=== PATIENT | female | born 1955 | race Caucasian/White ===

== ENCOUNTER 2017-09-29 13:27 | Emergency (ER) | payer OTHER ==
[~2017-09-29] VITALS: Ht 154.9 cm; Wt 82.0 kg
[~2017-09-29 13:27] MED LIST: BUSP-8 PO; GLC/500 PO; GLIM2TAB2 PO; HYDR25TA4 PO; IMIP50TA PO; LISI-794 PO; LPT40 PO; MULT-506 PO; OMEG12006 PO; POTA20TA13 PO; PRLSR20 PO
[2017-09-29 13:33] VITALS: TEMP 37.2; Ht 154.9 cm; Wt 82.0 kg
--- NOTE | 2017-09-29 14:14 | EMERGENCY ROOM VISIT NOTE ---
History Report prepared by Destin: Louis Ho Under the Supervision of: Dr. Jun Alejandra M.D. First contact with patient: 13:50 Chief Complaint: VOMITING Stated Complaint: WEAKNESS,VOMITING, PASSING OUT History of Present Illness The patient is a 62 year old white female with a past medical history of anxiety , depression, hypertension, and diabetes who presents to the ED with a cc of intermittent episodes of vomiting beginning last night. Positive loss of consciousness, headache, productive cough, nausea, diarrhea, and generalized weakness. Negative fevers, chest pain, shortness of breath, abdominal pain, or abnormal urinary symptoms. Last night, the patient started to feel unwell and began to experience a headache, cough, nausea, and associated vomiting. Today, she began to feel generally weak and had episodes of diarrhea. While vomiting today, she experienced a syncopal episode that only lasted a couple of seconds. She did not hit her head or exhibit seizure-like activity. She does not smoking tobacco products. She denies any recent sick contacts, travel, or recent antibiotic use. She did not receive a influenza immunization. She denies any kidney stone history. Source of History: patient Onset: last night Position: other (GI) Symptom Intensity: Multiple Episodes Quality: other (Vomiting) Timing: intermittent Associated Symptoms: + LOC, + headache, + cough, + nausea, + diarrhea, + weakness, No fevers, No chest pain, No SOB, No abdominal pain, No urinary symptoms Review of Systems See HPI for pertinent positives and negatives. A total of ten systems were reviewed and were otherwise negative. Past Medical & Surgical Medical Problems: (1) Anxiety (2) Benign hypertension Family History Omitted secondary to the patient's age. Social History Smoking Status: Never Smoker Marital Status: Occupation Status: employed Current/Historical Medications Scheduled Atorvastatin (Lipitor), 40 MG PO DAILY Buspirone Hcl (Buspirone Hcl), 10 MG PO DAILY Cephalexin (Keflex), 1 CAP PO BID Glimepiride (Glimepiride), 2 MG PO DAILY Hydrochlorothiazide (Hctz), 12.5 MG PO DAILY Imipramine Hcl (Tofranil), 100 MG PO HS Lisinopril (Zestril), 40 MG PO DAILY Metformin Hcl (Glucophage), 500 MG PO QAM Multivitamin (Multivitamin), 1 TAB PO DAILY [place]-3 Fatty Acids ([place] 3), 1,000 MG PO DAILY Omeprazole (Prilosec), 20 MG PO DAILY Oseltamivir (Tamiflu), 75 MG PO BID Potassium Chloride Microencaps (Potassium Chloride Er), 20 MEQ PO DAILY Scheduled PRN Ondansetron Hcl (Zofran), 4 MG PO Q8H PRN for Nausea Allergies Coded Allergies: Codeine (Unverified Allergy, Mild, 09/29/17) Permethrin (Verified Allergy, Unknown, Became disoriented., 09/29/17) Listed in [facility] record, reported by PT. Physical Exam Vital Signs Date Time Temp Pulse Resp B/P (MAP) Pulse Ox O2 Delivery O2 Flow Rate FiO2 09/29/17 17:20 100 18 116/68 94 Room Air 09/29/17 15:05 113 18 160/93 92 Room Air 09/29/17 14:32 118 09/29/17 13:33 37.2 118 20 137/81 94 Room Air Physical Exam GENERAL: Awake, alert, well-appearing, NAD, face mask in place. HENT: Normocephalic, atraumatic. EYES: Normal conjunctiva. Sclera non-icteric. NECK: Supple. No nuchal rigidity. FROM. RESPIRATORY: CTAB, no rhonchi, wheezing, crackles CARDIAC: Tachycardic rate with a regular rhythm. No MRG ABDOMEN: Soft, NTND, BS+, nonsurgical MSK: No chest wall TTP, no LE edema. No CVA TTP. NEURO: GCS 15, CN 2-12 intact, moves all 4s on command SKIN: No rash or jaundice noted. Medical Decision & Procedures ER Provider Diagnostic Interpretation: Radiology results as stated below per my review and radiologist interpretation: HEAD WITHOUT CONTRAST (CT) CLINICAL HISTORY: 62 years-old Female presenting with syncope, BRAMBILA, weakness. TECHNIQUE: Multidetector CT imaging of the head was performed without the use of intravenous contrast. IV contrast: None. A dose lowering technique was used consistent with the principles of ALARA (as low as reasonably achievable). COMPARISON: None. CT DOSE (mGy.cm): The estimated cumulative dose is 679.75 mGycm. 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 Ventricles and sulci normal in size. Periventricular and subcortical white matter hypoattenuation, nonspecific but likely indicative of chronic small vessel ischemic change. Old lacunar infarcts in the subinsular region bilaterally. No mass effect or midline shift. No hemorrhage or acute territorial infarct. No extra-axial fluid collection. Paranasal sinuses and mastoid air cells clear. Calvarium intact. IMPRESSION: 1. Chronic small vessel ischemic change. No acute intracranial abnormality. Electronically signed by: Oswaldo Argueta M.D. 09/29/2017 3:32 PM Dictated Date/Time: 09/29/2017 3:30 PM CHEST ONE VIEW PORTABLE CLINICAL HISTORY: Abdominal pain. COMPARISON STUDY: Chest radiograph and abdominal series November 13, 2014. FINDINGS: No lucency is identified under the hemidiaphragms to suggest pneumoperitoneum. Lung volumes are at the lower limits of normal. No pneumothorax or pleural effusion is noted. There is no evidence for pulmonary edema. Cardiomediastinal silhouette is unremarkable. IMPRESSION: No acute cardiopulmonary findings. Electronically signed by: Sacha Henriquez M.D. 09/29/2017 2:49 PM Dictated Date/Time: 09/29/2017 2:49 PM Laboratory Results 09/29/17 14:33 Red Blood Count 4.41, Mean Corpuscular Volume 87.3, Mean Corpuscular Hemoglobin 29.7, Mean Corpuscular Hemoglobin Concent 34.0, Mean Platelet Volume 11.6, Neutrophils (%) (Auto) 78.6, Lymphocytes (%) (Auto) 8.2, Monocytes (%) (Auto) 12.4, Eosinophils (%) (Auto) 0.0, Basophils (%) (Auto) 0.3, Neutrophils # (Auto ) 6.24, Lymphocytes # (Auto) 0.65, Monocytes # (Auto) 0.98, Eosinophils # (Auto ) 0.00, Basophils # (Auto) 0.02 09/29/17 14:33 Test 09/29/17 14:33 09/29/17 14:55 09/29/17 16:35 White Blood Count 7.93 K/uL (4.8-10.8) Red Blood Count 4.41 M/uL (4.2-5.4) Hemoglobin 13.1 g/dL (12.0-16.0) Hematocrit 38.5 % (37-47) Mean Corpuscular Volume 87.3 fL (80-100) Mean Corpuscular Hemoglobin 29.7 pg (25-34) Mean Corpuscular Hemoglobin Concent 34.0 g/dl (32-36) Platelet Count 173 K/uL (130-400) Mean Platelet Volume 11.6 fL (7.4-10.4) Neutrophils (%) (Auto) 78.6 % Lymphocytes (%) (Auto) 8.2 % Monocytes (%) (Auto) 12.4 % Eosinophils (%) (Auto) 0.0 % Basophils (%) (Auto) 0.3 % Neutrophils # (Auto) 6.24 K/uL (1.4-6.5) Lymphocytes # (Auto) 0.65 K/uL (1.2-3.4) Monocytes # (Auto) 0.98 K/uL (0.11-0.59) Eosinophils # (Auto) 0.00 K/uL (0-0.5) Basophils # (Auto) 0.02 K/uL (0-0.2) RDW Standard Deviation 42.5 fL (36.4-46.3) RDW Coefficient of Variation 13.2 % (11.5-14.5) Immature Granulocyte % (Auto) 0.5 % Immature Granulocyte # (Auto) 0.04 K/uL (0.00-0.02) Anion Gap 7.0 mmol/L (3-11) Est Creatinine Clear Calc Drug Dose 76.4 ml/min Estimated GFR () 99.7 Estimated GFR (Non- 86.0 BUN/Creatinine Ratio 9.7 (10-20) Calcium Level 9.0 mg/dl (8.5-10.1) Total Bilirubin 0.5 mg/dl (0.2-1) Direct Bilirubin 0.1 mg/dl (0-0.2) Aspartate Amino Transf (AST/SGOT) 22 U/L (15-37) Alanine Aminotransferase (ALT/SGPT) 39 U/L (12-78) Alkaline Phosphatase 81 U/L (45-117) Total Protein 7.5 gm/dl (6.4-8.2) Albumin 3.6 gm/dl (3.4-5.0) Lipase 176 U/L (73-393) Urine Color DK YELLOW Urine Appearance CLOUDY (CLEAR) Urine pH 8.5 (4.5-7.5) Urine Specific [place] 1.024 (1.000-1.030) Urine Protein NEG (NEG) Urine Glucose (UA) TRACE (NEG) Urine Ketones TRACE (NEG) Urine Occult Blood NEG (NEG) Urine Nitrite NEG (NEG) Urine Bilirubin NEG (NEG) Urine Urobilinogen NEG (NEG) Urine Leukocyte Esterase TRACE (NEG) Urine WBC (Auto) 1-5 /hpf (0-5) Urine RBC (Auto) 0-4 /hpf (0-4) Urine Hyaline Casts (Auto) 1-5 /lpf (0-5) Urine Epithelial Cells (Auto) >30 /lpf (0-5) Urine Bacteria (Auto) 1+ (NEG) Urine Yeast (Auto) PRESENT (NONE PRSENT) Influenza Type A Antigen POS for Influ A (NEG) Influenza Type B Antigen Neg for Influ B (NEG) Laboratory results reviewed by me Medications Administered Medications (Trade) Dose Ordered Sig/Darline Route Start Time Stop Time Status Last Admin Dose Admin Sodium Chloride 1,000 ml @ 999 mls/hr Q1H1M STAT IV 09/29/17 14:18 09/29/17 15:18 DC 09/29/17 14:18 999 MLS/HR Ondansetron HCl (Zofran Inj) 4 mg NOW STAT IV 09/29/17 14:18 09/29/17 14:22 DC 09/29/17 14:50 4 MG Acetaminophen (Tylenol Tab) 1,000 mg NOW STAT PO 09/29/17 14:18 09/29/17 14:22 DC 09/29/17 14:55 1,000 MG Famotidine (Pepcid Tab) 20 mg NOW ONCE PO 09/29/17 14:30 09/29/17 14:31 DC 09/29/17 14:53 20 MG Lidocaine HCl (Viscous Lidocaine 2% Soln) 20 ml STK-MED ONCE .ROUTE 09/29/17 14:46 09/29/17 14:47 DC 09/29/17 14:55 20 ML Al Hydroxide/Mg Hydroxide (Maalox Susp) 30 ml STK-MED ONCE .ROUTE 09/29/17 14:46 09/29/17 14:47 DC 09/29/17 14:55 30 ML Sodium Chloride 1,000 ml @ 999 mls/hr Q1H1M STAT IV 09/29/17 15:59 09/29/17 16:59 DC 09/29/17 16:21 999 MLS/HR Ceftriaxone Sodium (Rocephin Inj) 1 gm NOW STAT IV 09/29/17 15:59 09/29/17 16:00 DC 09/29/17 16:23 1 GM Fluconazole (Diflucan Tab) 150 mg NOW ONCE PO 09/29/17 16:00 18 16:01 DC 09/29/17 16:23 150 MG ECG Indication: weakness Rate (beats per minute): 116 Rhythm: sinus tachycardia Findings: other (Normal intervals, normal axis, questionable TWI in lead III) Change: Patient's electrocardiogram interpreted by me. ED Course 1350: The patient was evaluated in room C4. A complete history and physical exam was performed. 1643: Upon reevaluation, the patient is looking and feeling well. She is tolerating PO intake. She would like to go home. 1715: I reevaluated the patient. Discussed results and discharge instructions: She verbalized understanding and agreement. The patient is ready for discharge. Medical Decision The patient is a 62 year old white female with a past medical history of anxiety , depression, hypertension, and diabetes who presents to the ED with a cc of intermittent episodes of vomiting beginning last night. Positive loss of consciousness, headache, productive cough, nausea, diarrhea, and generalized weakness. Negative fevers, chest pain, shortness of breath, abdominal pain, or abnormal urinary symptoms. Differential diagnosis: Etiologies such as gastroenteritis, food borne illness, infections, appendicitis , diverticulitis, inflammatory bowel disease, obstruction, GI bleed, biliary pathology, as well as others were entertained. Patient was seen and evaluated the bedside. Patient does have a history of diabetes and hypertension. Patient had noted flulike symptoms associated with some vomiting and diarrhea last evening. Patient denies any chest pain or shortness of breath. Patient also denies any abdominal pain. Patient did have several subsequent episodes of vomiting today and did sink bites. Patient did not strike her head. Total downtime was only several seconds. Patient does not take any blood thinning medications. I believe this is likely situational syncope or somewhat related to dehydration given the patient's fluid losses. Patient does not complain of any shortness of breath or chest pain but denied any palpitations or feeling lightheaded. Patient did not strike her head. However a CT of the brain was obtained. This is negative acute. EKG did show sinus tachycardia without any ischemic changes. Troponin negative. Patient's other blood work fairly unremarkable. WBC within normal limits. Kidney function normal. The patient's chest x-ray clear. Patient's UA crushable infection and positive for yeast. Patient was given Rocephin as well as Diflucan. Upon reassessment the patient's tachycardia improved. Given that there is no overt arrhythmia and I believe the syncope again and was related to the vomiting less likely some other problem believe she suitable for outpatient follow-up and discharge at this time. Patient was able tolerate by mouth. Patient was given some anti-medics for home. Patient was told to continue fluid hydration and that her appetite would improve with time. Patient was given strict follow-up, discharge, and return precautions. All questions were answered. Patient was deemed suitable for outpatient follow-up at this time. Patient agreed with the plan of care and was safely discharged home. Medication Reconcilliation Current Medication List: was personally reviewed by me Blood Pressure Screening Patient's blood pressure: Elevated blood pressure Blood pressure disposition: Elevated BP felt to be situational Impression Primary Impression: UTI (urinary tract infection) Additional Impressions: Yeast infection Acute gastroenteritis Influenza Scribe Attestation The scribe's documentation has been prepared under my direction and personally reviewed by me in its entirety. I confirm that the note above accurately reflects all work, treatment, procedures, and medical decision making performed by me. Departure Information Dispostion Home / Self-Care Prescriptions Cephalexin (KEFLEX) 500 Mg Cap 1 CAP PO BID for 7 Days, #14 CAP Prov: Jun Alejandra M.D. 09/29/17 Ondansetron Hcl (ZOFRAN) 4 Mg Tab 4 MG PO Q8H Y for Nausea, #9 TAB Prov: Jun Alejandra M.D. 09/29/17 Oseltamivir (Tamiflu) 75 Mg Cap 75 MG PO BID for 5 Days, #9 CAP Prov: Jun Alejandra M.D. 09/29/17 Referrals Brooke Clark D.O. (PCP) Forms HOME CARE DOCUMENTATION FORM, IMPORTANT VISIT INFORMATION Patient Instructions ED Gastroenteritis Non Infec, ED Nausea Vomiting, My [facility] Additional Instructions Please return to the emergency department if you have worsening or recurrent symptoms not amenable to at-home treatment. Please call for a follow-up appointment with her primary care physician. Please take your medications as prescribed. If you have other concerns and/or complaints please feel free to also call your primary care physician's office or return the ED for further evaluation, management, and treatment. You may take 600 mg Ibuprofen every 6 hours as needed for pain with food for no more than 2 consecutive days. You may take tylenol 1000 mg every 6 hours as needed for pain. You may take motrin and tylenol separately or at the same time. Take your medications as prescribed. Take Zofran as needed. Continue liberal fluid hydration and avoid things like caffeine and alcohol. Advance your diet as tolerated; however, you may not want to eat foods but as long as you're tolerating liquids that is okay. You have been examined and treated today on an emergency basis only. This is not a substitute for, or an effort to provide, complete comprehensive medical care. It is impossible to recognize and treat all injuries or illnesses in a single emergency department visit. It is therefore important that you follow up closely with [facility], your PCP, and/or your specialist(s). Call as soon as possible for an appointment. Thank you for your time and consideration. I look forward to speaking with you again soon. Please don't hesitate to call us if you have any questions. Problem Qualifiers Primary Impression: UTI (urinary tract infection) Urinary tract infection type: acute cystitis Hematuria presence: without hematuria Qualified Codes: N30.00 - Acute cystitis without hematuria
[2017-09-29] MEDS ORDERED: ACETAMINOPHEN 500 MG TAB PO STA (14:18)
[2017-09-29] MEDS ORDERED: ONDANSETRON INJ 2 MG/ML 2 ML VIAL IV STA (14:18)
[2017-09-29] MEDS ORDERED: SODIUM CHLORIDE 0.9% 1000ML 1,000 ML IV STA ×2 (14:18→15:59)
[2017-09-29] MEDS ORDERED: GI COCKTAIL PO STA (14:18)
[2017-09-29] MEDS ORDERED: FAMOTIDINE 20 MG TAB PO ONE (14:30)
[2017-09-29 14:44] LABS: BASO % 0.3 %; BASO ABS # 0.02 K/uL (0-0.2); HEMATOCRIT 38.5 % (37-47); HEMOGLOBIN 13.1 g/dL (12.0-16.0); IG# 0.04 K/uL (0.00-0.02); LYMPH % 8.2 %; LYMPH ABS # 0.65 K/uL (1.2-3.4); MEAN CELL VOLUME 87.3 fL (80-100); MEAN CORPUSCULAR HEMOGLOBIN 29.7 pg (25-34); MEAN PLATELET VOLUME 11.6 fL (7.4-10.4); MONO % 12.4 %; MONO ABS # 0.98 K/uL (0.11-0.59); NEUT % 78.6 %; NEUT ABS # 6.24 K/uL (1.4-6.5); PLATELET COUNT 173 K/uL (130-400); RED CELL DISTRIBUTION WIDTH CV 13.2 % (11.5-14.5); RED CELL DISTRIBUTION WIDTH SD 42.5 fL (36.4-46.3); WHITE BLOOD COUNT 7.93 K/uL (4.8-10.8)
[2017-09-29] MEDS ORDERED: LIDOCAINE HCL 2% VISC SOLN 20 ML UDC ONE (14:46)
[2017-09-29] MEDS ORDERED: ALUMINUM/MAGNESIUM SUSP 30 ML UDC ONE (14:46)
--- NOTE | 2017-09-29 14:51 | DIAGNOSTIC IMAGING REPORT ---
CHEST ONE VIEW PORTABLE CLINICAL HISTORY: Abdominal pain. COMPARISON STUDY: Chest radiograph and abdominal series November 13, 2014. FINDINGS: No lucency is identified under the hemidiaphragms to suggest pneumoperitoneum. Lung volumes are at the lower limits of normal. No pneumothorax or pleural effusion is noted. There is no evidence for pulmonary edema. Cardiomediastinal silhouette is unremarkable. IMPRESSION: No acute cardiopulmonary findings. Electronically signed by: Sacha Henriquez M.D. 09/29/2017 2:49 PM Dictated Date/Time: 09/29/2017 2:49 PM
[2017-09-29 15:06] LABS: ALBUMIN 3.6 gm/dl (3.4-5.0); CREATININE 0.75 mg/dl (0.60-1.20); POTASSIUM 3.6 mmol/L (3.5-5.1)
[2017-09-29 15:09] LABS: TOTAL PROTEIN 7.5 gm/dl (6.4-8.2)
--- NOTE | 2017-09-29 15:34 | DIAGNOSTIC IMAGING REPORT ---
HEAD WITHOUT CONTRAST (CT) CLINICAL HISTORY: 62 years-old Female presenting with syncope, BRAMBILA, weakness. TECHNIQUE: Multidetector CT imaging of the head was performed without the use of intravenous contrast. IV contrast: None. A dose lowering technique was used consistent with the principles of ALARA (as low as reasonably achievable). COMPARISON: None. CT DOSE (mGy.cm): The estimated cumulative dose is 679.75 mGycm. 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 Ventricles and sulci normal in size. Periventricular and subcortical white matter hypoattenuation, nonspecific but likely indicative of chronic small vessel ischemic change. Old lacunar infarcts in the subinsular region bilaterally. No mass effect or midline shift. No hemorrhage or acute territorial infarct. No extra-axial fluid collection. Paranasal sinuses and mastoid air cells clear. Calvarium intact. IMPRESSION: 1. Chronic small vessel ischemic change. No acute intracranial abnormality. Electronically signed by: Oswaldo Argueta M.D. 09/29/2017 3:32 PM Dictated Date/Time: 09/29/2017 3:30 PM
[2017-09-29] MEDS ORDERED: CEFTRIAXONE SOD INJ 1 GM ADDVIAL IV STA (15:59)
[2017-09-29] MEDS ORDERED: FLUCONAZOLE 50 MG TAB PO ONE (16:00)
[2017-09-29 17:21] LABS: INFLUENZA B ANTIGEN Neg for Influ B (NEG)
[2017-09-29] MEDS ORDERED: OSELTAMIVIR PHOSPHATE 75 MG CAP PO STA (17:26)
[2017-09-29] MEDS ORDERED: ONDA4TAB46 PO (17:31)
[2017-09-29] MEDS ORDERED: OSEL75CA12 PO (17:31)
[2017-09-29] MEDS ORDERED: CEPH-571 PO (17:32)
[2017-09-29 18:35] VITALS: BP 137/84; PULSE 105; O2SAT 95
== END 2017-09-29 18:35 | disposition home or self-care (01) ==
LOC: C.EDB 13:28 → C.EDC 18:35
DX: N30.00 Acute cystitis without hematuria (principal); B37.9 Candidiasis, unspecified; K52.9 Noninfective gastroenteritis and colitis, unspecified; J11.1 Influenza due to unidentified influenza virus with other respiratory manifestations; F41.9 Anxiety disorder, unspecified; F32.9 Major depressive disorder, single episode, unspecified; I10 Essential (primary) hypertension; E11.9 Type 2 diabetes mellitus without complications; Z79.84 Long term (current) use of oral hypoglycemic drugs; Z88.5 Allergy status to narcotic agent; Z88.8 Allergy status to other drugs, medicaments and biological substances

== ENCOUNTER 2018-03-13 18:10 | Emergency (ER) | payer MEDICARE, OTHER ==
[~2018-03-13] VITALS: Ht 152.4 cm; Wt 85.3 kg
[~2018-03-13 18:10] MED LIST changes: +ONDA4TAB46 PO
[2018-03-13 18:15] VITALS: Ht 152.4 cm; Wt 85.3 kg
[2018-03-13] MEDS ORDERED: CEPH500C PO (18:54)
[2018-03-13] MEDS ORDERED: PHENAZOPYRIDINE HOME PACK 200 MG VIAL PO ONE (19:00)
[2018-03-13] MEDS ORDERED: CEPHALEXIN 500MG HOME PACK 1 EA BTL PO ONE (19:00)
[2018-03-13 19:11] VITALS: BP 126/90; PULSE 90; O2SAT 98
--- NOTE | 2018-03-13 23:49 | EMERGENCY ROOM VISIT NOTE ---
History Report prepared by Destin: Salinas Hurtado Under the Supervision of: Dr. Prince Joseph M.D. First contact with patient: 18:43 Chief Complaint: URINARY SYMPTOMS Stated Complaint: UTI SYMPTOMS, PAIN AND BLOOD IN URINE History of Present Illness The patient is a 62 year old female who presents to the Emergency Room with complaints of sensation of pressure in the bladder, hematuria, and burning with urination beginning yesterday. She has a history of urinary tract infection and states that her current symptoms feel similar. She also states that she urinates very frequently. She denies fever, back pain, vomiting, abdominal pain , shortness of breath, or chest pain. She denies a history of kidney stones. She also reports that she has a "bad tooth" that is now improved, for which she was on Augmentin until finishing it 3 days ago. She is scheduled to have her tooth removed. Source of History: patient Onset: yesterday Position: other (bladder) Quality: pressure, burning (with urination) Modifying Factors (Relieving): other (none) Associated Symptoms: No fevers, No chest pain, No SOB, No vomiting, No abdominal pain, No back pain Review of Systems See HPI for pertinent positives & negatives. A total of 6 systems reviewed and were otherwise negative. Past Medical & Surgical Medical Problems: (1) Anxiety (2) Benign hypertension Family History Cancer Diabetes mellitus Heart disease Hypertension Social History Smoking Status: Never Smoker Marital Status: Occupation Status: employed Current/Historical Medications Scheduled Atorvastatin (Lipitor), 40 MG PO DAILY Buspirone Hcl (Buspirone Hcl), 10 MG PO DAILY Cephalexin Monohydrate (Keflex), 500 MG PO QID Glimepiride (Glimepiride), 2 MG PO DAILY Hydrochlorothiazide (Hctz), 12.5 MG PO DAILY Imipramine Hcl (Tofranil), 100 MG PO HS Lisinopril (Zestril), 40 MG PO DAILY Metformin Hcl (Glucophage), 500 MG PO QAM Multivitamin (Multivitamin), 1 TAB PO DAILY [place]-3 Fatty Acids ([place] 3), 1,000 MG PO DAILY Omeprazole (Prilosec), 20 MG PO DAILY Potassium Chloride Microencaps (Potassium Chloride Er), 20 MEQ PO DAILY Scheduled PRN Ondansetron Hcl (Zofran), 4 MG PO Q8H PRN for Nausea Allergies Coded Allergies: Codeine (Unverified Allergy, Mild, 09/29/17) Permethrin (Verified Allergy, Unknown, Became disoriented., 09/29/17) Listed in [facility] record, reported by PT. Physical Exam Vital Signs Date Time Temp Pulse Resp B/P (MAP) Pulse Ox O2 Delivery O2 Flow Rate FiO2 03/13/18 19:11 90 18 126/90 98 03/13/18 18:15 108 20 161/107 100 Room Air Physical Exam Constitutional: Vital signs reviewed. Eyes: Pupils are equal round reactive to light. Conjunctiva are noninjected. ENT: Pharynx is clear without erythema or exudate. Mucous membranes are moist. Neck supple without meningeal signs. Respiratory: Clear to auscultation bilaterally. Breath sounds are equal bilaterally. Cardiovascular: Tachycardic rate and regular rhythm. No rubs or gallops. GI: Soft, nondistended and nontender. Bowel sounds are present. Musculoskeletal: No peripheral edema. No lower extremity tenderness. No CVA tenderness. Integumentary: No cyanosis. Neurological: The patient is awake and alert. No focal deficits. Psychiatric: Slightly anxious. Medical Decision & Procedures Laboratory Results Test 03/13/18 18:15 Urine Color RED Urine Appearance TURBID (CLEAR) Urine pH 6.0 (4.5-7.5) Urine Specific [place] >= 1.030 (1.000-1.030) Urine Protein 3+ (NEG) Urine Glucose (UA) NEG (NEG) Urine Ketones NEG (NEG) Urine Occult Blood 3+ (NEG) Urine Nitrite NEG (NEG) Urine Bilirubin NEG (NEG) Urine Urobilinogen NEG (NEG) Urine Leukocyte Esterase TRACE (NEG) Urine RBC >30 /hpf (0-4) Urine WBC >30 /hpf (0-5) Urine Epithelial Cells >30 /lpf (0-5) Urine Renal Cells 5-10 /lpf (FEW) Urine Bacteria 1+ (NEG) Laboratory results as reviewed by me. Medications Administered Medications (Trade) Dose Ordered Sig/Darline Route Start Time Stop Time Status Last Admin Dose Admin Phenazopyridine HCl (Phenazopyridine HCl 200MG Home Pack) 1 homepack UD ONCE PO 03/13/18 19:00 03/13/18 19:01 DC 7/27/18 19:09 1 HOMEPACK Cephalexin Monohydrate (Keflex 500MG Home Pack) 1 homepack NOW ONCE PO 03/13/18 19:00 03/13/18 19:01 DC 03/13/18 19:09 1 HOMEPACK ED Course 1846: The patient was evaluated in room B7. A complete history and physical exam was performed. 1899: Ordered Phenazopyridine HCl 1 homepack PO, Keflex 1 homepack PO 1912: Upon reevaluation, the patient appeared to have improvement of her symptoms. I discussed tonight's findings with her. She verbalized agreement of the treatment plan. She was discharged home. Medical Decision This is a 62-year-old female presents with urinary symptoms. Differential diagnosis includes UTI, interstitial cystitis, kidney stone. I did perform a limited focused review of portions of the patient's old chart on the electronic medical record. The patient was diagnosed with urinary tract infection in September and was treated with Keflex. Culture was negative. I did evaluate the patient as noted above. Patient was slightly tachycardic on arrival but she states that she normally gets anxious and that is likely what is causing it. She has no signs of sepsis. Her symptoms are consistent with a UTI. Urine analysis and urine culture were sent. I did discuss the case with the ED pharmacist because of recent antibiotic use. She recommended treating patient with Keflex. The patient was given a home pack of Keflex and discharged home with a prescription for 9 more days. Medication Reconcilliation Current Medication List: was personally reviewed by me Blood Pressure Screening Patient's blood pressure: Elevated blood pressure Blood pressure disposition: Referred to PCP Impression Primary Impression: Urinary tract infection Scribe Attestation The scribe's documentation has been prepared under my direct and personally reviewed by me in its entirety. I confirm that the note above accurately reflects all work, treatment, procedures, and medical decision making performed by me. Departure Information Dispostion Home / Self-Care Prescriptions Cephalexin Monohydrate (Keflex) 500 Mg Cap 500 MG PO QID for 9 Days, #36 CAP Prov: Prince Joseph M.D. 03/13/18 Referrals Brooke Clark D.O. (PCP) Forms HOME CARE DOCUMENTATION FORM, IMPORTANT VISIT INFORMATION Patient Instructions My [facility] Additional Instructions You have been examined and treated today on an emergency basis only. This is not a substitute for, or an effort to provide, complete comprehensive medical care. It is impossible to recognize and treat all injuries or illnesses in a single emergency department visit. It is therefore important that you follow up closely with your physician. Call as soon as possible for an appointment. Return for worsening symptoms or if you develop fever, vomiting, flank or abdominal pain or any other concerning symptoms. Problem Qualifiers Primary Impression: Urinary tract infection Urinary tract infection type: acute cystitis Hematuria presence: with hematuria Qualified Codes: N30.01 - Acute cystitis with hematuria
== END 2018-03-13 19:13 | disposition home or self-care (01) ==
LOC: C.EDB 18:11
DX: N30.01 Acute cystitis with hematuria (principal); I10 Essential (primary) hypertension; F41.9 Anxiety disorder, unspecified; Z88.8 Allergy status to other drugs, medicaments and biological substances; Z87.440 Personal history of urinary (tract) infections